=== PATIENT | male | born 1965 ===

== ENCOUNTER 2020-12-06 12:47 | Emergency (ER) | payer SELFPAY ==
--- NOTE | 2020-12-06 13:09 | CT ---
EXAMINATION: Head wo Cont SEX: Male AGE: 89 years CLINICAL HISTORY: Unknown [place]. Seizures. No known trauma or medical history. Scan technique: Volume acquisition of data emergency unenhanced CT scan of the head and brain obtained with the patient lying supine on the Siemens multislice scanner [facility]. All data archived in the PACS system for storage, reformatting axial/sagittal/coronal planes and study (bone/brain/soft tissue windows). INTERPRETATION: Negative exam. 1. Uniformly thick bony calvarium. No sign of pathologic skeletal lesion, skull fracture, brain contusion or epidural/subdural hematoma. 2. Symmetric clear pneumatization of the paranasal and mastoid sinuses. Midline nasal septum. 3. No supratentorial or posterior fossa mass lesion. No sign of hydrocephalus. 4. No focal areas of ischemic infarct or signs of encephalomalacia. No arachnoid cyst. 5. No sign of acute intracerebral, intraventricular or subarachnoid bleed. 6. Cerebellum and brainstem unremarkable. Conclusion: Negative emergency unenhanced CT scan head and brain.
--- NOTE | 2020-12-06 13:15 | EDM.PDOC ---
ED HPI GENERAL MEDICAL PROBLEM - General Time Seen by Provider: 12/06/20 12:50 Source of Information: Reports: Patient, EMS History Limitations: Reports: Altered Mental Status - History of Present Illness INITIAL COMMENTS - FREE TEXT/NARRATIVE: This male patient was brought to the ED by [facility] and [facility]. According to [facility], the patient had 2 seizures prior to their arrival (1st one lasted 45 seconds and 2nd one lasted 1 minute). When [facility] arrived, the patient was having some possible seizure activity and was given 2 mg of Ativan IM. [facility] reports the patient was complaining of pain to his left eye throughout the visit. The patient was able to report his name is "Roque" and that his left eye hurts, but did not report any additional information. Upon arrival in the ED, the patient was initially sent directly to CT for a scan of his head. EMS reported the patient's blood sugar level was 300 during their interactions with the patient. Upon arrival in the ED, the patient would state h is name is "Roque", but when asked his last name he would again reply "Roque". The patient then stated "give him some bread and he will be fine." The patient was able to follow commands. The patient reports intermittent pain to the left side of his head. The patient denied any trauma or acute injury to the head. 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 ) - Related Data Allergies Allergy/AdvReac Type Severity Reaction Status Date / Time Unable to Assess Allergy Unverified 12/06/20 13:04 Home Meds: Home Meds . [Unable to Verify Home Med List] 12/06/20 [History] ED ROS GENERAL - Review of Systems Review Of Systems: Comprehensive ROS is negative, except as noted in HPI. ED EXAM, GENERAL - Physical Exam Exam: See Below Exam Limited By: No Limitations General Appearance: Alert, WD/WN, Anxious, Severe Distress Eye Exam: Bilateral Eye: EOMI, Normal Inspection, PERRL Ears: Normal External Exam, Normal Canal, Hearing Grossly Normal, Normal TMs Nose: Normal Inspection, Normal Mucosa, No Blood Throat/Mouth: Normal Inspection, Normal Lips, Normal Teeth, Normal Gums, Normal Oropharynx, Normal Voice, No Airway Compromise Head: Atraumatic, Normocephalic Neck: Normal Inspection, Supple, Non-Tender, Full Range of Motion Respiratory/Chest: No Respiratory Distress, Lungs Clear, Normal Breath Sounds, No Accessory Muscle Use, Chest Non-Tender Cardiovascular: Normal Peripheral Pulses, Regular Rate, Rhythm, No Edema, No Gallop, No JVD, No Murmur, No Rub GI/Abdominal: Normal Bowel Sounds, Soft, Non-Tender, No Organomegaly, No Distention, No Abnormal Bruit, No Mass (Male) Exam: Deferred Rectal (Males) Exam: Deferred Back Exam: Normal Inspection, Full Range of Motion, NT Extremities: Normal Inspection, Normal Range of Motion, Non-Tender, Normal Capillary Refill, No Pedal Edema Neurological: Alert, Confused, Disoriented Psychiatric: Anxious Skin Exam: Warm, Dry, Intact, Normal Color, No Rash Lymphatic: No Adenopathy #1 Interpretation EKG Date: 12/06/20 Time: 13:04 Rhythm: NSR Rate (Beats/Min): 93 Archbold: Normal P-Wave: Present QRS: Normal ST-T: Normal QT: Normal Comparison: NA - No Prior EKG Course - Vital Signs Last Recorded V/S: Last Vital Signs Temp 97.1 F 12/06/20 13:11 Pulse 98 12/06/20 15:30 Resp 16 12/06/20 15:30 BP 166/102 H 12/06/20 15:30 Pulse Ox 96 12/06/20 15:30 - Orders/Labs/Meds Orders: Active Orders 24 hr Category Date Time Status CULTURE BLOOD [BC] Stat Lab 12/06/20 13:08 Received DRUG SCREEN URINE BIORAD [URCHEM] Stat Lab 12/06/20 12:52 Ordered LACTIC ACID [CHEM] Routine Lab 12/06/20 15:56 Received UA RFX SCOOTER AND CULT IF INDIC [URIN] Urgent Lab 12/06/20 12:52 Ordered Labs: Laboratory Tests 12/06/20 12/06/20 12/06/20 Range/Units 13:08 13:08 13:08 WBC 11.3 H (5.0-10.0) 10^3/uL RBC 5.48 (4.6-6.2) 10^6/uL Hgb 17.2 (14.0-18.0) g/dL Hct 49.7 (40.0-54.0) % MCV 90.7 (80-100) fL MCH 31.4 (27.0-34.0) pg MCHC 34.6 (33.0-35.0) g/dL Plt Count 151 (150-450) 10^3/uL Neut % (Auto) 70.9 (42.2-75.2) % Lymph % (Auto) 21.8 (20.5-50.1) % [place] % (Auto) 6.8 (2-8) % Eos % (Auto) 0.3 L (1.0-3.0) % Baso % (Auto) 0.2 (0.0-1.0) % Sodium 136 (136-145) mmol/L Potassium 4.1 (3.5-5.1) mmol/L Chloride 99 (98-107) mmol/L Carbon Dioxide 23 (21-32) mmol/L Anion Gap 18.1 H (7-13) mEq/L BUN 12 (7-18) mg/dL Creatinine 1.01 (0.70-1.30) mg/dL Est Cr Clr Drug Dosing TNP Estimated GFR (MDRD) > 60 BUN/Creatinine Ratio 11.9 (No establ ref range) Glucose 345 H (70-99) mg/dL Lactic Acid (0.4-2.0) mmol/L Calcium 9.1 (8.5-10.1) mg/dL Magnesium 1.8 (1.8-2.4) mg/dL Total Bilirubin 0.5 (0.2-1.0) mg/dL AST 18 (15-37) U/L ALT 20 (16-63) U/L Alkaline Phosphatase 132 H (46-116) U/L Ammonia 15 (11-32) umol/L Troponin I High Sens 48 (<=76) pg/mL Total Protein 8.0 (6.4-8.2) g/dL Albumin 4.0 (3.4-5.0) g/dL Globulin 4.0 Albumin/Globulin Ratio 1.0 Amylase 32 (25-115) U/L Lipase 91 (73-393) U/L Acetaminophen 0 L (10-30 (Therapeutic)) ug/mL Ethyl Alcohol < 3 (0) mg/dL 12/06/20 Range/Units 13:08 WBC (5.0-10.0) 10^3/uL RBC (4.6-6.2) 10^6/uL Hgb (14.0-18.0) g/dL Hct (40.0-54.0) % MCV (80-100) fL MCH (27.0-34.0) pg MCHC (33.0-35.0) g/dL Plt Count (150-450) 10^3/uL Neut % (Auto) (42.2-75.2) % Lymph % (Auto) (20.5-50.1) % [place] % (Auto) (2-8) % Eos % (Auto) (1.0-3.0) % Baso % (Auto) (0.0-1.0) % Sodium (136-145) mmol/L Potassium (3.5-5.1) mmol/L Chloride (98-107) mmol/L Carbon Dioxide (21-32) mmol/L Anion Gap (7-13) mEq/L BUN (7-18) mg/dL Creatinine (0.70-1.30) mg/dL Est Cr Clr Drug Dosing Estimated GFR (MDRD) BUN/Creatinine Ratio (No establ ref range) Glucose (70-99) mg/dL Lactic Acid 2.7 H* (0.4-2.0) mmol/L Calcium (8.5-10.1) mg/dL Magnesium (1.8-2.4) mg/dL Total Bilirubin (0.2-1.0) mg/dL AST (15-37) U/L ALT (16-63) U/L Alkaline Phosphatase (46-116) U/L Ammonia (11-32) umol/L Troponin I High Sens (<=76) pg/mL Total Protein (6.4-8.2) g/dL Albumin (3.4-5.0) g/dL Globulin Albumin/Globulin Ratio Amylase (25-115) U/L Lipase (73-393) U/L Acetaminophen (10-30 (Therapeutic)) ug/mL Ethyl Alcohol (0) mg/dL Meds: Medications Discontinued Medications Generic Name Dose Route Start Last Admin Trade Name Berto PRN Reason Stop Dose Admin Sodium Chloride 1,000 mls @ 999 mls/hr 12/06/20 13:28 12/06/20 14:50 Normal Saline IV 12/06/20 14:28 999 mls/hr .BOLUS ONE Administration Ketorolac Tromethamine 30 mg 12/06/20 13:28 12/06/20 14:53 Ketorolac 30 Mg/Ml Sdv IVPUSH 12/06/20 13:29 30 mg ONETIME ONE Administration Ketorolac Tromethamine 30 mg 12/06/20 14:12 12/06/20 15:45 Ketorolac 30 Mg/Ml Sdv IM 12/06/20 14:13 Not Given ONETIME ONE Lorazepam 1 mg 12/06/20 14:13 12/06/20 14:50 Lorazepam 2 Mg/Ml Sdv IVPUSH 12/06/20 14:14 1 mg ONETIME ONE Administration - Re-Assessments/Exams Free Text/Narrative Re-Assessment/Exam: 12/06/20 14:05 The patient got out of bed on his own, started yelling and swearing. The patient refused any additional care, could not be redirected back to his bed and attempted to remove his IV's. The IV's were removed for the patient. The patient was encouraged to stay in the ED until we could at least find a ride for him, but the patient again became agitated. Javon Andrea was called to the ED due to the escalated behavior, but the patient then refused more politely. The patient had difficulties walking a straight line and would not allow any additional care or treatments. 12/06/20 14:30 After leaving AMA, the patient got outside and returned to the ED due to it being cold outside. The patient agreed to continued evaluation and management. 12/06/20 16:25 The patient was reassessed. The patient reports he continues to have a headache, but denies any pain to the area of the previously reported headache. The patient reports he feels very tired at this time and demanded water to drink. 12/06/20 16:57 The patient again left AMA. The patient was advised of the examination, lab and CT results. The patient reported he did not want to stay any longer due to being too tired to stay here. Departure - Departure Time of Disposition: 16:58 Disposition: Against Medical Advice 07 Condition: Undetermined Clinical Impression: Altered mental state Qualifiers: Altered mental status type: unspecified Qualified Code(s): R41.82 - Altered mental status, unspecified - Discharge Information *PRESCRIPTION DRUG MONITORING PROGRAM REVIEWED*: Not Applicable *COPY OF PRESCRIPTION DRUG MONITORING REPORT IN PATIENT FAISAL: Not Applicable Care Plan Goals: The patient left against medical advice. Sepsis Event Note (ED) - Focused Exam Vital Signs: Vital Signs Temp Pulse Resp BP BP Pulse Ox 12/06/20 15:30 98 16 166/102 H 96 12/06/20 13:11 97.1 F 90 16 140/66 99 - My Orders Last 24 Hours: My Active Orders 12/06/20 12:52 DRUG SCREEN URINE BIORAD [URCHEM] Stat UA RFX SCOOTER AND CULT IF INDIC [URIN] Urgent 12/06/20 13:08 CULTURE BLOOD [BC] Stat 12/06/20 15:56 LACTIC ACID [CHEM] Routine - Assessment/Plan Last 24 Hours: My Active Orders 12/06/20 12:52 DRUG SCREEN URINE BIORAD [URCHEM] Stat UA RFX SCOOTER AND CULT IF INDIC [URIN] Urgent 12/06/20 13:08 CULTURE BLOOD [BC] Stat 12/06/20 15:56 LACTIC ACID [CHEM] Routine
[2020-12-06] MEDS ORDERED: Ketorolac 30 MG/ML SDV IVPUSH ONE (13:28)
[2020-12-06] MEDS ORDERED: Sodium Chloride 0.9% 1,000 ML IV ONE (13:28)
[2020-12-06 13:36] LABS: ANION GAP 18.1 mEq/L (7-13); CHLORIDE,CL 99 mmol/L (98-107); SODIUM,NA 136 mmol/L (136-145)
[2020-12-06 13:42] LABS: ACETAMINOPHEN 0 ug/mL (10-30 (Therapeutic))
[2020-12-06] MEDS ORDERED: Ketorolac 30 MG/ML SDV IM ONE (14:12)
[2020-12-06] MEDS ORDERED: LORazepam 2 MG/ML SDV IVPUSH ONE (14:13)
[2020-12-06 16:34] LABS: AMPHETAMINES,URINE NEGATIVE (NEGATIVE); BARBITURATES,URINE NEGATIVE (NEGATIVE); BENZODIAZEPINE,URINE POSITIVE (NEGATIVE); MDMA (ECSTASY), URINE NEGATIVE (NEGATIVE); METHADONE,URINE NEGATIVE (NEGATIVE); METHAMPHETAMINES,URINE NEGATIVE (NEGATIVE); OPIATES,URINE NEGATIVE (NEGATIVE); OXYCODONE,URINE NEGATIVE (NEGATIVE); PHENCYCLIDINE,URINE NEGATIVE (NEGATIVE); TCA,URINE NEGATIVE (NEGATIVE)
== END 2020-12-06 16:57 | disposition left against medical advice (07) ==
LOC: EDBD 12:47 → DL.ED 12:47
DX: R41.82 Altered mental status, unspecified (principal)
CPT/HCPCS: 36415; 70450; 80053; 80143; 80305; 80307; 81001; 82140; 82150; 83605; 83690; 83735; 84484; 85025; 87040; 93005; 96374; 96375; 99285; J1885; J2060; J7030